=== PATIENT | female | born 1940 | race Caucasian/White ===

== ENCOUNTER 2016-07-01 11:35 | Emergency (ER) | payer MEDICARE ==
[2016-07-01] MEDS ORDERED: DIPHTH,PERTUSS(ACELL),TET VAC 0.5 ML VIAL IM V ONE (13:10)
--- NOTE | 2016-07-01 13:29 | RAD ---
Name: EDGARD WINTERS Exam: Right hand Comparison: None Clinical history: Pain Findings: 4 radiographs of the right hand are submitted. Bone density is within normal limits. There is advanced degenerative disease of the lateral carpus. Carpal alignment is normal. Degenerative changes are identified at the DIP joint of the index finger and to a lesser degree at the DIP joints of the third and fifth digits. There is no fracture, dislocation, periosteal reaction or foreign body. Impression: Scattered degenerative changes. There is no acute bony abnormality.
--- NOTE | 2016-07-01 13:45 | CT ---
Name: EDGARD WINTERS Exam: CT head without contrast Comparison: 08/20/2015 Clinical history: Trauma Technique: Helical CT was performed through the head. Angled axial reconstructions were obtained. Sagittal and coronal reconstructions were obtained as well. No contrast was given. An automated dose reduction technique was used to minimize patient radiation dose. Findings: There is no shift of the midline structures. Mild atrophy is present. There is no mass, mass effect or hemorrhage. Cisterns are uneffaced. Posterior fossa is unremarkable. Dense vascular calcifications are present. Visualized paranasal sinuses and mastoid air cells are clear. There is a small left frontal scalp hematoma without underlying fracture Impression: 1. Mild atrophy 2. Small left frontal scalp hematoma without underlying fracture 3. Dense atherosclerosis 4. No significant change to prior Note: The above report was uploaded to [facility]'s electronic medical records system at 1341 hours.
== END 2016-07-01 14:17 | disposition home or self-care (01) ==
LOC: ED 11:35
DX: S00.83XA Contusion of other part of head, initial encounter (principal); S00.31XA Abrasion of nose, initial encounter; S63.601A Unspecified sprain of right thumb, initial encounter; E78.5 Hyperlipidemia, unspecified; I10 Essential (primary) hypertension; W01.0XXA Fall on same level from slipping, tripping and stumbling without subsequent striking against object, initial encounter; Z79.899 Other long term (current) drug therapy; Z79.82 Long term (current) use of aspirin; Z88.8 Allergy status to other drugs, medicaments and biological substances; Z23 Encounter for immunization

== ENCOUNTER 2016-07-08 09:48 | Inpatient (IN) | payer MEDICARE ==
[2016-07-08] MEDS ORDERED: IOPAMIDOL 370 (76%) 100 ML VIAL IV ONE (09:49)
[2016-07-08] MEDS ORDERED: SODIUM CHLORIDE 0.9% 1,000 ML ONE (09:56)
[2016-07-08] MEDS ORDERED: ASPIRIN CHEWTAB 81 MG TABLET ONE (10:13)
[2016-07-08] MEDS ORDERED: ONDANSETRON 4 MG/2ML 2 ML VIAL ONE (10:13)
[2016-07-08 10:43] LABS: ABSOLUTE NEUTROPHIL COUNT 7.2 K/mm3 (1.8-7.7); BASO % 0.3 % (0.2-1.0); EOS # 0.2 (0.0-0.5); EOS % 1.6 % (0.9-2.9); HEMATOCRIT 46.7 % (37.0-47.0); HEMOGLOBIN 14.6 gm/l (12.0-16.0); IMM NEUT% 0.4 % (0-1); LYMPH # 1.6 (1.0-4.8); LYMPH % 16.7 % (15-45); MEAN CELL VOLUME 96.9 fl (81.0-99.0); MEAN CORPUSCULAR HEMOGLOBIN 30.3 pg (27.0-31.0); MEAN CORPUSCULAR HGB CONC 31.3 g/dl (33.0-37.0); MEAN PLATELET VOLUME 10.4 fl (7.4-10.4); MONO # 0.7 (0.0-0.8); MONO % 7.4 % (4-12); NEUT % 73.6 % (43-75); PLATELET COUNT 190 K/mm3 (130-400); RED CELL DISTRIBUTION WIDTH 13.1 % (11.5-14.5)
[2016-07-08 10:46] LABS: PH,URINE 6.5 (5.0-8.0); URINE BILIRUBIN NEGATIVE (NEGATIVE); URINE BLOOD NEGATIVE (NEGATIVE); URINE GLUCOSE (UA) NEGATIVE (NEGATIVE); URINE LEUKOCYTE ESTERASE NEGATIVE (NEGATIVE); URINE NITRITE NEGATIVE (NEGATIVE); URINE PROTEIN 2+ (NEGATIVE); URINE UROBILINOGEN NORMAL (0-1 mg/dl)
[2016-07-08 10:59] LABS: URINE APPEARANCE CLEAR; URINE COLOR YELLOW
[2016-07-08 11:02] LABS: INR 1.01; PROTHROMBIN TIME 10.6 SECONDS (9.3-11.4)
--- NOTE | 2016-07-08 11:16 | RAD ---
CHEST-AP BEDSIDE COMPARISON: None HISTORY: Shortness of breath and diarrhea for one day. Weakness. FINDINGS: Views: Frontal chest. Lungs: Normal. Heart and vessels: Mild cardiomegaly. Atherosclerosis aorta. Normal pulmonary arteries and veins. Trachea and bronchi: Normal Mediastinum and nura: Normal Costophrenic sulci: Normal Chest wall and bones: Normal Upper abdomen: Normal. IMPRESSION: No acute finding. Mild cardiomegaly and atherosclerosis of the thoracic aorta.
[2016-07-08 11:29] LABS: D-DIMER 11.05 mg/L FEU (0.20-0.50)
[2016-07-08 11:42] LABS: ALB/GLOB RATIO 1.2 (>1.0); ALBUMIN 4.2 gm/dL (3.5-5.7); CALCIUM 9.3 mg/dL (8.6-10.3)
--- NOTE | 2016-07-08 13:39 | CT ---
CTA CHEST FOR PE COMPARISON: Portable chest x-ray, 07/08/2016 HISTORY: Hypoxia and weakness. Technique: Intravenous injection 67 mL [id number]-370. Using a [employer] Aquilion [address] scanner, following a CT angiogram protocol, images obtained through the thorax. Under concurrent supervision and interpretation, requiring a separate 3-D workstation, the technologist created 3-D CT angiograms. An automated dose reduction technique was used to minimize patient radiation dose. Dose information: CTDIvol (mGy): 7.70, 117.50, 13.50 DLP(mGycm): 465.10 FINDINGS: Pulmonary arteries and veins: Excellent contrast opacification. Moderate volume of embolism at the branching of the right pulmonary, with embolism extending primarily into the right lower lobe pulmonary artery, but also into the right middle lobe and right upper lobe arteries. Minimal embolism burden in the arteries to the left lower lobe and left upper lobe. Aorta: Normal Heart and coronary arteries: Normal. Lungs: Mosaic perfusion Trachea and bronchi: Normal. Mediastinum and nura: Normal. Pleura and pericardium: Normal. Chest wall: Mild pectus excavatum. Spine: Thoracic spondylosis and hyperkyphosis. Upper abdomen:Normal. 3-D CT angiogram: Normal. IMPRESSION: 1. Critical result of bilateral pulmonary emboli with mosaic perfusion discussed with Cam Montanez M.D. 07/08/2016 at 13:35
--- NOTE | 2016-07-08 13:42 | CT ---
HEAD W/O CON COMPARISON: Head CT without contrast 07/01/2016 HISTORY: Patient hit her head and has dizziness. TECHNIQUE: Using a [employer] Aquilion [address] scanner, images were obtained through the head. An automated dose reduction technique was used to minimize patient radiation dose. DOSE INFORMATION: CTDIvol (mGy): 51.70 DLP(mGycm): 913.10 FINDINGS: Mass: None Intracranial Hemorrhage: None Acute Infarction: None Cerebral hemispheres: No change. Mild atrophy. Basal ganglia: Normal Thalami: Normal Brainstem: Normal Cerebellum: Normal Ventricles: Normal Basilar cisterns: Normal Corpus callosum: Normal Pituitary fossa: Normal Middle ears and mastoid air cells: Normal Orbits and sinuses: Normal Skull and scalp: Normal Dural sinuses and vessels: Normal IMPRESSION: No acute finding. Mild cerebral atrophy similar to the prior exam. The results were discussed with Cam Montanez M.D., 07/08/2016 at 13:35
[2016-07-08] MEDS ORDERED: Heparin Sodium 5000 unit/0.5ml syringe ONE (13:45)
[2016-07-08] MEDS ORDERED: HEPARIN SODIUM PREMIX 500 ML IV ONE (13:46)
[2016-07-08] MEDS ORDERED: SODIUM CHLORIDE 0.9% 100 ML IV PRN (14:51)
[2016-07-08] MEDS ORDERED: BISACODYL 10 MG SUP PR PRN (14:51)
[2016-07-08] MEDS ORDERED: BLISTEX LIPSTICK 1 EACH TP PRN (14:51)
[2016-07-08] MEDS ORDERED: BISACODYL 5 MG TABLET.EC PO PRN (14:51)
[2016-07-08] MEDS ORDERED: MAGNESIUM HYDROXIDE 30 ML UDCUP PO PRN (14:51)
[2016-07-08 14:59] VITALS: BMI 35.2
[2016-07-08] MEDS ORDERED: HEPARIN SODIUM PREMIX 500 ML IV SCH ×2 (15:00→21:20)
[2016-07-08] MEDS ORDERED: HEPARIN SODIUM IV ONE ×2 (15:00→15:15)
[2016-07-08] MEDS ORDERED: WARFARIN PER PHARMACY 1 EACH DOSE PO SCH (16:00)
[2016-07-08] MEDS ORDERED: WARFARIN SODIUM 5 MG TABLET PO SCH (16:00)
[2016-07-08] MEDS ORDERED: SODIUM CHLORIDE 0.9% 1,000 ML IV SCH (16:15)
[2016-07-08] MEDS ORDERED: PUMP TUBING ONE (16:17)
--- NOTE | 2016-07-08 21:11 | HP ---
EDGARD WINTERS [id number] DATE OF ADMISSION: 07/08/2016 CHIEF COMPLAINT: Syncope. HISTORY OF PRESENT ILLNESS: The patient is a 76-year-old female with a past medical history significant for chronic Stage-3 kidney disease due to atrophy of one of her kidneys of uncertain etiology. She also has a history of chronic essential hypertension and osteoporosis, as well as osteoarthritis. She was brought to the [facility] Emergency Department this morning by ambulance after she collapsed in her front yard and may have had brief loss of consciousness. She reports she had sudden onset of the syncope and the dizziness following and had some nausea, vomiting and diaphoresis associated with the spell. She remembers waking-up on the front lawn and feeling very weak and short of breath. She was unable to stand, but she was able to crawl into her house. She was covered with water because of the moisture outside and was very cold. She reports she does not know how long she was unconscious, but believes it was brief. She had one episode of emesis after the spell and was diaphoretic. She has had a cough for a couple of weeks, which has been nonproductive. She has noticed some dyspnea on exertion for several weeks, but this has been mild and not enough to prompt her to seek medical attention. She had a routine appointment with her doctor in the next week and had just been waiting. She denies any chest pain. She has had persistent shortness of breath since the episode occurred this morning. REVIEW OF SYSTEMS: Negative for any documented fever. She has had no recent upper respiratory symptoms. No chest pains or palpitations. No lower extremity edema or orthopnea. She had a single episode of emesis with the syncopal episode this morning, but denies any persistent nausea or vomiting. She has had no diarrhea or constipation and no abdominal pain. She denies any complaints of headaches or seizures. No prior history of any syncopal episodes. No urinary complaints. Her review of systems is otherwise negative. PAST MEDICAL HISTORY: Significant for: 1. A history of generalized osteoarthritis. 2. She has a history of a single kidney status and chronic Stage-3 kidney disease, with a baseline creatinine of around 1.3. She is followed by Dr. Valencia with [facility]. She reportedly has one functioning kidney discovered on ultrasound, with atrophy of her other kidney. It is unclear what caused this. 3. She has chronic essential hypertension. 4. Dyslipidemia. 5. She is under treatment for osteoporosis. 6. She has generalized osteoarthritis. 7. She has had no recent hospitalizations, except for a left knee replacement in May of 2015 over a year ago. PAST SURGICAL HISTORY: Significant for: 1. The left total knee arthroplasty performed on 05/25/2015. 2. She had a hysterectomy sometime in the , with oophorectomies. 3. She had a right foot neuroma surgery x 2. 4. Tonsillectomy as a child. ALLERGIES: 1. Lidocaine. 2. Bee stings. CURRENT MEDICATIONS: Include: 1. Enteric-coated aspirin 81 mg daily. 2. She carries an EpiPen to use as needed. 3. She takes a multivitamin once daily. 4. Vitamin D-3, 2,000 units daily. 5. Norvasc 5 mg daily. 6. Fosamax 70 mg once a week on Sundays. 7. Simvastatin 20 mg every evening. 8. She takes some medicine prescribed by Dr. Valencia twice a week, possibly captopril. This needs to be confirmed, and will document when able. FAMILY HISTORY: Significant for a sister and a mother with coronary artery disease. SOCIAL HISTORY: She is single and is retired. She has one grown daughter. She lives independently in [facility]. She is not interested in dialysis. CODE STATUS: She wishes her code status to be do not resuscitate. HABITS: She has never smoked. She denies history of alcohol or illicit drug use. PHYSICAL EXAMINATION: VITAL SIGNS: Her vital signs show a temperature of 98.3, pulse 90, blood pressure 152/75, respirations 16 and oxygen saturations of 95% on four liters. In the emergency department her oxygen saturations were down to 82% on room air. Her body mass index is 35.2 and weight is 87.2 kilograms. GENERAL: This is a slightly obese female currently in no acute distress. HEENT: Shows some bruising of the soft tissues around the mouth, particularly on the upper lip, which she reports happened after she tripped and fell a week ago, but not in the most recent injury. NECK: Her neck is nontender, with full range of motion. No adenopathy. LUNGS: Her lungs reveal some faint occasional expiratory wheezes, otherwise clear to auscultation bilaterally. CARDIOVASCULAR: Reveals a regular rate and rhythm, without a murmur. ABDOMEN: Obese, soft, nontender and nondistended, with positive bowel sounds. EXTREMITIES: Show varicose veins in both lower extremities, with trace lower extremity edema bilaterally. Homans sign is negative bilaterally. No palpable cords are present. There is no inflammation or redness seen. No skin breakdown. NEUROLOGIC: Exam is nonfocal. She is alert and oriented times three. LABORATORY STUDIES: CBC showed a white count of 9.8, hemoglobin of 14.6 and a platelet count of 190,000. Coagulation profile showed an INR of 1.01, PTT of 22.7, and D-dimer was elevated at 11. Lactate was normal at 1.6. Chemistry profile showed a sodium of 126, potassium 3.6, carbon dioxide 21, BUN of 20, creatinine 1.4 and glucose 169 in a nonfasting sample. Troponin-I was 0.04. Total CPK was 73. Lipase 27 and albumin 4.2. Urinalysis showed a specific gravity of 1.020 and 2+ protein. Nitrite and leukocyte esterase are negative. A 12-lead EKG showed sinus rhythm. Possible old inferior infarct, with Q-wave seen in lead 3 and AVF, but no Q-wave in lead-2. IMAGIN. CT of the chest and abdomen with contrast shows multiple bilateral pulmonary emboli involving multiple lobes. 2. CT of the brain showed no acute findings. 3. Chest x-ray was unremarkable. ASSESSMENT/PLAN: 1. The patient has syncope associated with acute extensive pulmonary embolism, with acute hypoxic respiratory failure. 2. She had some hypothermia in the emergency department associated with exposure and her body temperature was down to 98.2 degrees. 3. She has chronic Stage-3 kidney disease, with a baseline creatinine of 1.3 to 1.4. 4. She has now had contrast exposure with the CT angiogram and is at risk for acute kidney injury. 5. She has some mild hyponatremia, suspect due to the pulmonary embolism. She will be hydrated with saline overnight and will recheck creatinine and sodium in the morning. 6. She has chronic essential hypertension and dyslipidemia, stable on medications. Plan on continuing her Norvasc and her simvastatin during her hospital stay. 7. She also has osteoporosis, on Fosamax. Will likely continue this in the morning as well. 8. She has been admitted to the Intermediate Care Unit. Will treat with a heparin drip and start her on Coumadin therapy. May transition from heparin to low-molecular weight heparin in the next 48 hours depending on how she is doing, but anticipate she will stay in the hospital for three to four days until her INR is therapeutic. She would prefer to have her Coumadin monitoring and management done at [facility], so we will make arrangements to be done through the [facility]. 9. Further treatment and recommendations will depend on her hospital course. cc: Lissy Bardales, Family Nurse Practitioner with [facility].
[2016-07-08] MEDS: ACETAMINOPHEN 325 MG TABLET PO PRN (21:23)
[2016-07-08] MEDS: SIMVASTATIN 20 MG TABLET PO SCH (21:24)
[2016-07-08] MEDS: DOCUSATE SODIUM 100 MG CAPSULE PO SCH (21:34)
[2016-07-09] MEDS: HEPARIN SODIUM PREMIX 500 ML IV SCH ×2 (03:17→09:25)
[2016-07-09 05:40] LABS: ABSOLUTE NEUTROPHIL COUNT 4.4 K/mm3 (1.8-7.7); BASO # 0.1 K/mm3 (0.0-0.2); BASO % 0.6 % (0.2-1.0); EOS # 0.3 (0.0-0.5); EOS % 2.9 % (0.9-2.9); HEMATOCRIT 39.1 % (37.0-47.0); HEMOGLOBIN 12.5 gm/l (12.0-16.0); IMM NEUT% 0.2 % (0-1); LYMPH # 3.6 (1.0-4.8); LYMPH % 38.5 % (15-45); MEAN CELL VOLUME 95.6 fl (81.0-99.0); MEAN CORPUSCULAR HEMOGLOBIN 30.6 pg (27.0-31.0); MONO # 1.1 (0.0-0.8); MONO % 11.2 % (4-12); NEUT % 46.6 % (43-75); PLATELET COUNT 181 K/mm3 (130-400)
[2016-07-09 06:11] LABS: INR 1.04; PROTHROMBIN TIME 10.9 SECONDS (9.3-11.4)
[2016-07-09 06:20] LABS: CALCIUM 8.1 mg/dL (8.6-10.3)
[2016-07-09] MEDS ORDERED: ALENDRONATE SODIUM 70 MG TABLET PO SCH (07:30)
[2016-07-09] MEDS: DOCUSATE SODIUM 100 MG CAPSULE PO SCH ×2 (10:13→21:25)
[2016-07-09] MEDS: ASPIRIN (ENTERIC COATED) 81 MG TABLET.EC PO SCH (10:17)
[2016-07-09] MEDS: VITAMIN D3 1,000 UNITS CAP.LIQ PO SCH (10:18)
[2016-07-09] MEDS: AMLODIPINE BESYLATE 5 MG TABLET PO SCH (10:18)
--- NOTE | 2016-07-09 10:42 | PDOC43 ---
- Subjective Chief Complaint: Syncope/dyspnea Subjective: Reports Shortness of Breath (improving), Reports Cough ( nonproductive), Denies Chest Pain, Denies Fever - Objective Vital Signs Temperature 98.8 F 07/09/16 08:00 Pulse Rate 67 07/09/16 08:00 Respiratory Rate 22 07/09/16 08:00 Blood Pressure 124/64 07/09/16 08:00 O2 Saturation by Pulse Oximetry 96 07/09/16 08:00 Oxygen Delivery Method Nasal Cannula Oxygen Flow Rate 3 Intake and Output 07/08/16 07/09/16 07/10/16 06:59 06:59 06:59 Intake Total 3892 Output Total 1250 Balance 2642 General: Alert, Oriented x3, Cooperative, No Acute Distress HEENT: Mucous membr. moist/pink Lungs: Clear to Auscultation Bilaterally Cardiovascular: Regular Rate and Rhythm Abdomen: Soft, Normal Bowel Sounds, Non-Distended, No Tenderness Extremities: No Edema Skin: Warm, Dry, Intact Laboratory 07/09/16 05:30 07/09/16 05:30 07/09/16 07/09/16 07/09/16 09:20 05:30 02:00 RBC 4.09 L MCHC 32.0 L PTT 95.7 H 59.7 H Estimated GFR 44 L Calcium 8.1 L 07/08/16 20:05 RBC MCHC PTT 53.4 H Estimated GFR Calcium Current Medications: Current meds reviewed in EMR. - Problems: Assessment/Plan (1) Pulmonary embolism Qualifiers: Chronicity: acute Acute cor pulmonale presence: without acute cor pulmonale Status: AcuteAssessment/Plan: extensive pulmonary emboli with acute hypoxic resp failure improving on heparin drip and oxygen weaning from 4L to 2L via NC, coumadin started-[facility], advance activity, remove nettles (2) CKD (chronic kidney disease) stage 3, GFR 30-59 ml/min Status: ChronicAssessment/Plan: Cr stable despite IV contrast (3) Hyponatremia Status: AcuteAssessment/Plan: improved with saline (4) HTN (hypertension), benign Status: ChronicAssessment/Plan: stable on norvasc (5) Obesity, Class II, BMI 35-39.9 Status: ChronicAssessment/Plan: complicates care VTE Prophylaxis: heparin drip Disposition: transition to med/surg
[2016-07-09] MEDS: MENTHOL/CETYLPYRD 1 EACH LOZENGE PO PRN ×2 (10:45→16:11)
[2016-07-09] MEDS ORDERED: WARFARIN SODIUM 5 MG TABLET PO ONE (16:00)
[2016-07-09] MEDS ORDERED: HEPARIN SODIUM PREMIX 500 ML IV SCH (16:29)
[2016-07-09] MEDS: SIMVASTATIN 20 MG TABLET PO SCH (21:25)
[2016-07-10] MEDS ORDERED: HEPARIN SODIUM PREMIX 500 ML IV SCH ×2 (03:45→05:00)
[2016-07-10 03:54] LABS: HEMATOCRIT 40.7 % (37.0-47.0); HEMOGLOBIN 12.7 gm/l (12.0-16.0); MEAN CELL VOLUME 95.1 fl (81.0-99.0); MEAN CORPUSCULAR HEMOGLOBIN 29.7 pg (27.0-31.0); MEAN CORPUSCULAR HGB CONC 31.2 g/dl (33.0-37.0); RED CELL DISTRIBUTION WIDTH 12.8 % (11.5-14.5)
[2016-07-10 04:30] LABS: INR 1.18; PARTIAL THROMBOPLASTIN TIME 104.2 SECONDS (24.5-33.0); PROTHROMBIN TIME 12.5 SECONDS (9.3-11.4)
[2016-07-10] MEDS: VITAMIN D3 1,000 UNITS CAP.LIQ PO SCH (08:24)
[2016-07-10] MEDS: AMLODIPINE BESYLATE 5 MG TABLET PO SCH (08:24)
[2016-07-10] MEDS: ASPIRIN (ENTERIC COATED) 81 MG TABLET.EC PO SCH (08:24)
[2016-07-10] MEDS: DOCUSATE SODIUM 100 MG CAPSULE PO SCH ×2 (08:24→21:18)
[2016-07-10] MEDS: ENOXAPARIN SODIUM 100 MG/ML SYRINGE SUB-Q SCH ×2 (10:24→21:17)
[2016-07-10] MEDS: ALBUTEROL NEB 2.5 MG/3 ML VIAL.NEB NEB PRN ×2 (11:02→19:41)
--- NOTE | 2016-07-10 14:31 | PDOC43 ---
- Subjective Chief Complaint: Syncope/dyspnea Subjective: Reports Tolerating Diet Well, Reports Shortness of Breath (improving ), Denies Chest Pain, Denies Fever - Objective Vital Signs Temperature 97.8 F 07/10/16 11:09 Pulse Rate 70 07/10/16 11:09 Respiratory Rate 22 07/10/16 11:09 Blood Pressure 148/71 07/10/16 11:09 O2 Saturation by Pulse Oximetry 93 07/10/16 11:09 Oxygen Delivery Method Room Air Oxygen Flow Rate 0 Intake and Output 07/09/16 07/10/16 07/11/16 06:59 06:59 06:59 Intake Total 3892 2014.1 120 Output Total 1250 1850 550 Balance 2642 164.1 -430 General: Alert, Oriented x3, Cooperative, No Acute Distress HEENT: Mucous membr. moist/pink Lungs: Other (scattered wheezes) Cardiovascular: Regular Rate and Rhythm Abdomen: Soft, Normal Bowel Sounds, Non-Distended, No Tenderness Extremities: No Edema Skin: Warm, Dry, Intact Laboratory 07/10/16 03:45 07/09/16 05:30 07/10/16 07/09/16 07/09/16 03:45 22:33 15:25 MCHC 31.2 L PT 12.5 H PTT 104.2 H 122.7 H 105.7 H Current Medications: Current meds reviewed in EMR. - Problems: Assessment/Plan (1) Pulmonary embolism Qualifiers: Chronicity: acute Acute cor pulmonale presence: without acute cor pulmonale Status: AcuteAssessment/Plan: extensive pulmonary emboli with acute hypoxic resp failure improving on heparin drip and oxygen weaning from 4L to 2L via NC, coumadin started-[facility], advance activity, anticipate transition from heparin drip to Lovenox today with possible outpatient therapy in next 1-2 days (2) CKD (chronic kidney disease) stage 3, GFR 30-59 ml/min Status: ChronicAssessment/Plan: Cr stable despite IV contrast (3) Hyponatremia Status: AcuteAssessment/Plan: improved with saline (4) HTN (hypertension), benign Status: ChronicAssessment/Plan: stable on norvasc (5) Obesity, Class II, BMI 35-39.9 Status: ChronicAssessment/Plan: complicates care VTE Prophylaxis: Lovenox Disposition: Anticipate discharge in am if stable
[2016-07-10] MEDS ORDERED: WARFARIN SODIUM 5 MG TABLET PO SCH (16:00)
[2016-07-10] MEDS ORDERED: WARFARIN SODIUM 7.5 MG TABLET PO SCH (16:00)
[2016-07-10] MEDS: ACETAMINOPHEN 325 MG TABLET PO PRN ×2 (16:12→23:09)
[2016-07-10] MEDS: SIMVASTATIN 20 MG TABLET PO SCH (21:18)
[2016-07-10] MEDS: MENTHOL/CETYLPYRD 1 EACH LOZENGE PO PRN (21:18)
[2016-07-10] MEDS ORDERED: ONDANSETRON 4 MG/2ML 2 ML VIAL ONE (23:06)
[2016-07-10] MEDS: ONDANSETRON 4 MG/2ML 2 ML VIAL IV PRN (23:09)
[2016-07-11] MEDS: ASPIRIN (ENTERIC COATED) 81 MG TABLET.EC PO SCH (10:02)
[2016-07-11] MEDS: ENOXAPARIN SODIUM 100 MG/ML SYRINGE SUB-Q SCH ×2 (10:02→21:23)
[2016-07-11] MEDS: VITAMIN D3 1,000 UNITS CAP.LIQ PO SCH (10:02)
[2016-07-11] MEDS: AMLODIPINE BESYLATE 5 MG TABLET PO SCH (10:02)
[2016-07-11] MEDS: DOCUSATE SODIUM 100 MG CAPSULE PO SCH ×2 (10:02→21:23)
--- NOTE | 2016-07-11 10:44 | RAD ---
History: Chest pain with hypoxia. Comparison: 07/08/2016. Technique: 2 views Findings: Multilevel thoracic degenerative changes are identified. The heart size is borderline prominent. Mild central vascular congestion is also observed with an appearance similar to that seen on prior exam. No gross consolidation, effusion or pneumothorax is seen. The hilar and mediastinal structures are intact. Impression: 1. Borderline cardiac size with mild central vascular prominence, similar to that seen on prior examination.
[2016-07-11] MEDS: ALBUTEROL NEB 2.5 MG/3 ML VIAL.NEB NEB PRN ×2 (10:52→16:04)
[2016-07-11] MEDS ORDERED: FUROSEMIDE 20 MG/2 ML VIAL IV ONE (12:04)
--- NOTE | 2016-07-11 13:04 | PDOC43 ---
- Subjective Chief Complaint: Syncope/dyspnea Subjective: Reports Adequate Oral Intake, Reports Shortness of Breath (a little worse today), Reports Cough (nonproductive), Reports Nausea (last night), Reports Vomiting (some vomiting last night), Denies Fever - Objective Vital Signs Temperature 97.2 F 07/11/16 12:00 Pulse Rate 74 07/11/16 12:00 Respiratory Rate 20 07/11/16 12:00 Blood Pressure 144/74 07/11/16 12:00 O2 Saturation by Pulse Oximetry 95 07/11/16 12:00 Oxygen Delivery Method Room Air Oxygen Flow Rate 0 Intake and Output 07/10/16 07/11/16 07/12/16 06:59 06:59 06:59 Intake Total 2014.1 2106 Output Total 1850 1875 Balance 164.1 231 General: Alert, Oriented x3, Cooperative, Mild Distress HEENT: Mucous membr. moist/pink Lungs: Other (some scattered wheezes, poor air movement) Cardiovascular: Regular Rate and Rhythm Abdomen: Soft, Normal Bowel Sounds, No Tenderness Extremities: Edema (trace) Laboratory 07/10/16 03:45 07/09/16 05:30 Current Medications: Current meds reviewed in EMR. - Problems: Assessment/Plan (1) Pulmonary embolism Qualifiers: Chronicity: acute Acute cor pulmonale presence: without acute cor pulmonale Status: AcuteAssessment/Plan: extensive pulmonary emboli with acute hypoxic resp failure improving on heparin drip and oxygen weaning from 4L to 2L via NC, coumadin started-[facility], advance activity, initially on heparin drip transitioned to Lovenox on 07/10 with possible outpatient therapy in next 1-2 days (2) CKD (chronic kidney disease) stage 3, GFR 30-59 ml/min Status: ChronicAssessment/Plan: Cr stable despite IV contrast (3) Hyponatremia Status: AcuteAssessment/Plan: improved with saline (4) HTN (hypertension), benign Status: ChronicAssessment/Plan: stable on norvasc (5) Obesity, Class II, BMI 35-39.9 Status: ChronicAssessment/Plan: complicates care (6) Cor pulmonale, acute Status: AcuteAssessment/Plan: suspected based on CXR-Lasix today VTE Prophylaxis: Lovenox Disposition: Anticipate discharge in am if stable
[2016-07-11] MEDS ORDERED: WARFARIN SODIUM 5 MG TABLET PO SCH (16:00)
[2016-07-11] MEDS: ACETAMINOPHEN 325 MG TABLET PO PRN ×2 (16:34→21:23)
[2016-07-11] MEDS: SIMVASTATIN 20 MG TABLET PO SCH (21:23)
[2016-07-11] MEDS: ONDANSETRON 4 MG/2ML 2 ML VIAL IV PRN (21:24)
[2016-07-12 06:48] LABS: ABSOLUTE NEUTROPHIL COUNT 2.8 K/mm3 (1.8-7.7); BASO # 0.1 K/mm3 (0.0-0.2); BASO % 0.8 % (0.2-1.0); EOS # 0.4 (0.0-0.5); EOS % 5.7 % (0.9-2.9); HEMATOCRIT 41.1 % (37.0-47.0); HEMOGLOBIN 13.1 gm/l (12.0-16.0); IMM NEUT% 0.2 % (0-1); LYMPH # 2.2 (1.0-4.8); LYMPH % 35.2 % (15-45); MEAN CORPUSCULAR HEMOGLOBIN 30.6 pg (27.0-31.0); MEAN CORPUSCULAR HGB CONC 31.9 g/dl (33.0-37.0); MONO # 0.8 (0.0-0.8); MONO % 12.6 % (4-12); NEUT % 45.5 % (43-75); PLATELET COUNT 213 K/mm3 (130-400); RED CELL DISTRIBUTION WIDTH 13.2 % (11.5-14.5)
[2016-07-12 07:05] LABS: INR 3.23; PROTHROMBIN TIME 36.1 SECONDS (9.3-11.4)
[2016-07-12 07:13] LABS: CALCIUM 8.4 mg/dL (8.6-10.3)
[2016-07-12] MEDS: ENOXAPARIN SODIUM 100 MG/ML SYRINGE SUB-Q SCH ×2 (09:08→20:02)
[2016-07-12] MEDS: VITAMIN D3 1,000 UNITS CAP.LIQ PO SCH (09:08)
[2016-07-12] MEDS: AMLODIPINE BESYLATE 5 MG TABLET PO SCH (09:09)
[2016-07-12] MEDS: DOCUSATE SODIUM 100 MG CAPSULE PO SCH ×2 (09:09→22:43)
[2016-07-12] MEDS: ASPIRIN (ENTERIC COATED) 81 MG TABLET.EC PO SCH (09:09)
[2016-07-12] MEDS: ALBUTEROL NEB 2.5 MG/3 ML VIAL.NEB NEB PRN ×2 (15:10→23:54)
[2016-07-12] MEDS ORDERED: ALBUTEROL/IPRATROPIUM 2.5/0.5 MG 3 ML/EACH DOSE NEB PRN (15:12)
--- NOTE | 2016-07-12 15:18 | PDOC43 ---
- Subjective Chief Complaint: Syncope/dyspnea Patient improving, still lot of pain on breathing. Rib pain with cough. She is wheezing that is troubling her. Denies chest pain or abdominal pain. Subjective: Reports Pain Tolerable, Reports Tolerating Diet Well, Reports Adequate Oral Intake, Reports Cough, Denies Shortness of Breath, Denies Chest Pain, Denies Abdominal Pain, Denies Nausea, Denies Vomiting - Objective Vital Signs Temperature 98.2 F 07/12/16 14:32 Pulse Rate 75 07/12/16 14:32 Respiratory Rate 16 07/12/16 14:32 Blood Pressure 165/80 07/12/16 14:32 O2 Saturation by Pulse Oximetry 93 07/12/16 14:32 Oxygen Delivery Method Room Air Oxygen Flow Rate 0 Intake and Output 07/10/16 07/11/16 07/12/16 23:59 23:59 23:59 Intake Total 2431 2650 760 Output Total 2200 2825 1650 Balance 231 -175 -890 General: Alert, Oriented x3, Cooperative, Other (obese), No Acute Distress HEENT: Atraumatic, PERRLA, EOMI, Mucous membr. moist/pink Lungs: Normal Air Movement, Other (B/L expiratory wheeze) Cardiovascular: Regular Rate and Rhythm, Normal S1, Normal S2 Abdomen: Soft, Mild Distention, No Rigid, No Tenderness, No Rebounding Extremities: No Cyanosis, No Edema, No Tenderness Neurological: Normal Speech Psych/Mental Status: Normal Mood Laboratory 07/12/16 06:30 07/12/16 06:30 07/12/16 06:30 MCHC 31.9 L PT 36.1 H Estimated GFR 44 L Calcium 8.4 L Current Medications: Current meds reviewed in EMR. - Problems: Assessment/Plan (1) Pulmonary embolism Qualifiers: Pulmonary embolism type: other Chronicity: acute Acute cor pulmonale presence: without acute cor pulmonale Qualifier Code: (I26.99) Other pulmonary embolism without acute cor pulmonale Status: AcuteAssessment /Plan: extensive pulmonary emboli with acute hypoxic resp failure improving on heparin drip and oxygen weaning from 4L to 2L via NC, coumadin started-[facility], advance activity, initially on heparin drip transitioned to Lovenox on 07/10 with possible outpatient therapy in next 1-2 days INR therapuetic today, will continue lovenox bridge. Patient feeling up to discharge as she is tolerating room air and maintaining O2 sats in low 90's. Her concern is the wheezing and pain with inspiration. Will trial nebulizer treatment and continue to monitor No evidence of cor pulmonale on CT exam, EKG. (2) CKD (chronic kidney disease) stage 3, GFR 30-59 ml/min Status: ChronicAssessment/Plan: Cr stable despite IV contrast (3) HTN (hypertension), benign Status: ChronicAssessment/Plan: stable on norvasc (4) Obesity, Class II, BMI 35-39.9 Status: ChronicAssessment/Plan: complicates care VTE Prophylaxis: Lovenox Disposition: Anticipate discharge in am if stable
[2016-07-12] MEDS: SIMVASTATIN 20 MG TABLET PO SCH (20:03)
[2016-07-12] MEDS: ACETAMINOPHEN 325 MG TABLET PO PRN (20:03)
[2016-07-13 06:03] LABS: HEMATOCRIT 40.6 % (37.0-47.0); HEMOGLOBIN 12.7 gm/l (12.0-16.0); MEAN CELL VOLUME 97.8 fl (81.0-99.0); MEAN CORPUSCULAR HEMOGLOBIN 30.6 pg (27.0-31.0); MEAN CORPUSCULAR HGB CONC 31.3 g/dl (33.0-37.0); RED CELL DISTRIBUTION WIDTH 13.3 % (11.5-14.5)
[2016-07-13 06:20] LABS: INR 3.25; PROTHROMBIN TIME 36.3 SECONDS (9.3-11.4)
[2016-07-13 06:27] LABS: CALCIUM 8.6 mg/dL (8.6-10.3)
[2016-07-13] MEDS: ONDANSETRON 4 MG/2ML 2 ML VIAL IV PRN (07:41)
--- NOTE | 2016-07-13 08:50 | RAD ---
CHEST 2 VIEWS HISTORY: Shortness of breath and wheezing Frontal and lateral chest radiographs dated 07/13/2016. COMPARISON: None. FINDINGS: FOCAL AIRSPACE OPACITY: No gross airspace consolidation. BRONCHOVASCULAR MARKINGS: Mildly coarsened. Peribronchial cuffing is seen on lateral and frontal views. PLEURAL EFFUSION: None. CARDIOMEDIASTINAL SILHOUETTE: Nonenlarged. Aortic arch calcification. PNEUMOTHORAX: None identified. OSSEOUS STRUCTURES: No grossly destructive lesions. Thoracic kyphosis and disc degeneration. IMPRESSION: 1. No gross airspace consolidation. Coarsened bronchovascular markings, which can be seen in the setting of bronchitis, atypical/viral infection, or central airways disease. 2. Evidence of aortic atherosclerotic disease and thoracic disc degeneration.
[2016-07-13] MEDS: ALBUTEROL/IPRATROPIUM 2.5/0.5 MG 3 ML/EACH DOSE NEB SCH ×4 (09:38→20:02)
[2016-07-13] MEDS: ENOXAPARIN SODIUM 100 MG/ML SYRINGE SUB-Q SCH ×3 (09:42→21:06)
[2016-07-13] MEDS: ASPIRIN (ENTERIC COATED) 81 MG TABLET.EC PO SCH (09:43)
[2016-07-13] MEDS: DOCUSATE SODIUM 100 MG CAPSULE PO SCH ×4 (09:43→21:05)
[2016-07-13] MEDS: VITAMIN D3 1,000 UNITS CAP.LIQ PO SCH (09:43)
[2016-07-13] MEDS: AMLODIPINE BESYLATE 5 MG TABLET PO SCH (09:43)
--- NOTE | 2016-07-13 10:57 | PDOC43 ---
- Subjective Chief Complaint: Syncope/dyspnea due to PE Patient reports ongoing cough, wheeze, somewhat helped by neb tx. Noted some feeling of warmth, nausea, which resolved with nausea med. Notes some itching rash on the top of both shoulders bilat. Walking some, did ok, but notes ongoing wheeze. - Objective Vital Signs Temperature 98.8 F 07/13/16 07:51 Pulse Rate 93 07/13/16 09:38 Respiratory Rate 18 07/13/16 09:38 Blood Pressure 136/71 07/13/16 07:51 O2 Saturation by Pulse Oximetry 93 07/13/16 09:49 Oxygen Delivery Method Room Air Oxygen Flow Rate 0 Intake and Output 07/11/16 07/12/16 07/13/16 23:59 23:59 23:59 Intake Total 2650 1910 800 Output Total 2825 2600 800 Balance -175 -690 0 General: Alert, Cooperative, No Acute Distress HEENT: Atraumatic Lungs: Other (wheezing bilat, diffuse. Prolonged exp phase.) Cardiovascular: Regular Rate and Rhythm Abdomen: Soft, Normal Bowel Sounds, Non-Distended Extremities: No Edema Skin: Normal Color, Other (area on top of shoulders bilat with sl red, sl papular dermatitis sugg of contact dermatitis, about 2 cm diam, symmetric.) Neurological: Normal Speech Psych/Mental Status: Normal Affect, Normal Mood Laboratory 07/13/16 05:30 07/13/16 05:30 07/13/16 05:30 RBC 4.15 L MCHC 31.3 L PT 36.3 H Estimated GFR 44 L Laboratory Tests 07/13/16 05:30 B-Natriuretic Peptide 29 Current Medications: Current meds reviewed in EMR. Active Medications Acetaminophen (Tylenol) 650 mg PO Q6H PRN PRN Reason: Pain or Temperature > 100.5 F Last Admin: 07/12/16 20:03 Dose: 325 mg Albuterol Sulfate (Ventolin Inhalation Solution (Dose)) 2.5 mg NEB Q4H PRN PRN Reason: Wheezing Last Admin: 07/12/16 23:54 Dose: 2.5 mg Albuterol/Ipratropium (Duoneb) 3 ml NEB 08,12,16,20 [facility] Last Admin: 07/13/16 09:38 Dose: 3 ml Alendronate Sodium (Fosamax) 70 mg PO MELISSA [facility] Last Admin: 07/09/16 08:03 Dose: 70 mg Amlodipine Besylate (Norvasc) 5 mg PO QAM [facility] Last Admin: 07/13/16 09:43 Dose: 5 mg Aspirin (Ecotrin) 81 mg PO DAILY [facility] Last Admin: 07/13/16 09:43 Dose: 81 mg Benzocaine/Menthol (Cepacol) 1 each PO PRN PRN PRN Reason: Sore Throat Last Admin: 07/10/16 21:18 Dose: 1 each Bisacodyl (Dulcolax) 10 mg [place] DAILY PRN PRN Reason: Constipation Bisacodyl (Dulcolax) 5 mg PO DAILY PRN PRN Reason: Constipation Cholecalciferol (Vitamin D3) 2,000 units PO QAM [facility] Last Admin: 07/13/16 09:43 Dose: 2,000 units Docusate Sodium (Colace) 100 mg PO BID [facility] Last Admin: 07/13/16 09:52 Dose: 100 mg Enoxaparin Sodium (Lovenox) 90 mg SUB-Q Q12HR [facility] Last Admin: 07/13/16 09:42 Dose: 90 mg Sodium Chloride (Sodium Chloride 0.9%) 100 mls @ 25 mls/hr IV PRN PRN PRN Reason: Flush Magnesium Hydroxide (Milk Of Magnesia) 30 ml PO DAILY PRN PRN Reason: Constipation Miscellaneous (Coumadin Per Pharmacy) 1 each PO PERPHARMACY [facility] Ondansetron HCl (Zofran) 4 mg IV Q4H PRN PRN Reason: Nausea/Vomiting Last Admin: 07/13/16 07:41 Dose: 4 mg Petrolatum/Paraffin/Mineral Oil (Blistex) 1 each TP PRN PRN PRN Reason: Dry and/or chapped lips Simvastatin (Zocor) 20 mg PO QPM [facility] Last Admin: 07/12/16 20:03 Dose: 20 mg Sodium Chloride (Normal Saline 10ml Flush) 10 - 50 ml IV PRN PRN PRN Reason: IV Flush Last Admin: 07/13/16 07:42 Dose: 10 ml Sodium Chloride (Normal Saline 10ml Flush) 10 ml IV Q8HR [facility] Last Admin: 07/13/16 10:25 Dose: 10 ml - Problems: Assessment/Plan (1) Pulmonary embolism Qualifiers: Pulmonary embolism type: other Chronicity: acute Acute cor pulmonale presence: without acute cor pulmonale Qualifier Code: (I26.99) Other pulmonary embolism without acute cor pulmonale Status: AcuteAssessment /Plan: Extensive pulmonary emboli with acute hypoxic respiratory failure improving with anticoagulation, now on RA. coumadin started-computer game designer, advance activity, initially on heparin drip transitioned to Lovenox on 07/10 with possible outpatient therapy in next 1-2 days INR therapeutic today, will continue lovenox bridge. Will trial nebulizer treatment and continue to monitor With wheezing, BNP checked, not elevated. No evidence of cor pulmonale on CT exam, EKG. (2) Cor pulmonale, acute Status: Ruled-outAssessment/Plan: initially suspected based on CXR, but now felt to not be the case. Anticipate checking Echo today. (3) Hyponatremia Status: ResolvedAssessment/Plan: improved with saline (4) CKD (chronic kidney disease) stage 3, GFR 30-59 ml/min Status: ChronicAssessment/Plan: Cr stable/improved. (5) HTN (hypertension), benign Status: ChronicAssessment/Plan: stable on norvasc (6) Obesity, Class II, BMI 35-39.9 Status: ChronicAssessment/Plan: complicates care VTE Prophylaxis: Lovenox, coumadin Disposition: Anticipate discharge in am if stable
[2016-07-13] MEDS: HYDROCORTISONE 1% CREAM 20 APPLIC/30 G TUBE TP SCH ×2 (11:51→21:05)
--- NOTE | 2016-07-13 12:09 | CT ---
Exam Type: CHEST W/O CON Date and Time: 07/13/2016 10:50 AM History: Persistent cough and wheezing. History of pulmonary embolism. Comparison: Chest x-ray 07/13/2016 and CTA chest 07/08/2016. Technique: Contiguous axial 3 mm images of the chest were obtained without IV contrast. Sagittal and coronal reformations with high resolution lung algorithm images were also obtained at this time. CT DI: 8.3 DLP: 298.7 FINDINGS: LUNG AND LARGE AIRWAYS: There has been resolution of the mosaic attenuation scattered throughout the lungs. Lungs are otherwise clear. Mild patient motion artifact is noted. PLEURA: within normal limits. VESSELS: within normal limits HEART: normal size. No pericardial effusion. MEDIASTINUM AND BREE: within normal limits. CHEST WALL AND LOWER NECK: within normal limits. UPPER ABDOMEN: Fatty atrophy of the pancreas is present. Otherwise remainder of the abdomen is unremarkable BONES: Pectus excavatum deformity is likely present. IMPRESSION: Resolution of the mosaic attenuation as seen on prior study. Lungs are clear. No specific cause for the patient's persistent cough and wheezing. This study is not adequate for the assessment of pulmonary emboli given the lack of contrast. If there is further clinical concern for emboli, CTA would be recommended. Other findings as above.
[2016-07-14] MEDS ORDERED: GUAIFENESIN/CODEINE 100/10 MG (5 ML UDCUP) ONE (00:40)
[2016-07-14] MEDS: GUAIFENESIN/CODEINE 100/10 MG (5 ML UDCUP) PO PRN ×4 (00:43→17:39)
[2016-07-14] MEDS: ALBUTEROL NEB 2.5 MG/3 ML VIAL.NEB NEB PRN ×2 (01:02→06:21)
[2016-07-14 06:22] LABS: BASO # 0.1 K/mm3 (0.0-0.2); BASO % 0.7 % (0.2-1.0); EOS # 0.3 (0.0-0.5); HEMATOCRIT 37.2 % (37.0-47.0); IMM NEUT% 0.2 % (0-1); LYMPH # 3.1 (1.0-4.8); LYMPH % 37.3 % (15-45); MEAN CELL VOLUME 95.6 fl (81.0-99.0); MEAN CORPUSCULAR HEMOGLOBIN 30.8 pg (27.0-31.0); MEAN CORPUSCULAR HGB CONC 32.3 g/dl (33.0-37.0); MEAN PLATELET VOLUME 9.7 fl (7.4-10.4); MONO # 0.8 (0.0-0.8); NEUT % 48.8 % (43-75); PLATELET COUNT 233 K/mm3 (130-400); RED CELL DISTRIBUTION WIDTH 13.5 % (11.5-14.5)
[2016-07-14 06:38] LABS: INR 2.71
[2016-07-14 06:42] LABS: ALB/GLOB RATIO 1.2 (>1.0); ALBUMIN 3.4 gm/dL (3.5-5.7); CALCIUM 8.5 mg/dL (8.6-10.3)
[2016-07-14] MEDS ORDERED: SODIUM CHLORIDE 0.9% FLUSH 10 ML ONE (06:54)
[2016-07-14] MEDS ORDERED: IV START KIT ONE (06:55)
[2016-07-14] MEDS: ONDANSETRON 4 MG/2ML 2 ML VIAL IV PRN (06:58)
[2016-07-14] MEDS: ACETAMINOPHEN 325 MG TABLET PO PRN (06:58)
--- NOTE | 2016-07-14 07:56 | PDOC43 ---
- Subjective Chief Complaint: Syncope/dyspnea due to PE Patient reported to be doing better, but cough seems to be worsening. Pt reports activity tolerance doing ok, but cough quite bothersome. She related how her sister has had some similar hx including a pulmonary embolus, and a severe persistent cough for years now. - Objective Vital Signs Temperature 98.5 F 07/14/16 07:38 Pulse Rate 81 07/14/16 07:38 Respiratory Rate 20 07/14/16 07:38 Blood Pressure 137/77 07/14/16 07:38 O2 Saturation by Pulse Oximetry 93 07/14/16 07:38 Oxygen Delivery Method Nasal Cannula Oxygen Flow Rate 2 Vital Signs Last 12 Hours Temp Pulse Resp BP Pulse Ox 07/14/16 07:38 98.5 F 81 20 137/77 93 07/14/16 07:30 93 07/14/16 07:26 78 88 07/14/16 06:40 77 20 91 07/14/16 06:25 91 07/14/16 01:32 99.5 F 82 20 150/77 92 07/14/16 01:00 16 07/13/16 20:03 81 16 93 07/13/16 19:59 18 Intake and Output 07/12/16 07/13/16 07/14/16 23:59 23:59 23:59 Intake Total 1910 1650 930 Output Total 2600 1750 850 Balance -690 -100 80 General: Alert, Cooperative, Mild Distress (from cough) Lungs: Other (upper airway wheezes bilat, more noticeable at upper sternum, but rad to lung pinedo bilat.) Cardiovascular: Regular Rate and Rhythm Abdomen: Soft, Normal Bowel Sounds, Non-Distended Extremities: Other (SCDs on), No Edema Neurological: Other (voice intact, speech clear.) Psych/Mental Status: Anxious, Other (appears quite uncomfortable from cough.) Laboratory 07/14/16 05:30 07/14/16 05:30 07/14/16 05:30 RBC 3.89 L MCHC 32.3 L PT 30.0 H Estimated GFR 49 L Calcium 8.5 L AST 80 H ALT 73 H Total Protein 6.3 L Albumin 3.4 L Current Medications: Current meds reviewed in EMR. Active Medications Acetaminophen (Tylenol) 650 mg PO Q6H PRN PRN Reason: Pain or Temperature > 100.5 F Last Admin: 07/14/16 06:58 Dose: 650 mg Albuterol Sulfate (Ventolin Inhalation Solution (Dose)) 2.5 mg NEB Q4H PRN PRN Reason: Wheezing Last Admin: 07/14/16 06:21 Dose: 2.5 mg Albuterol/Ipratropium (Duoneb) 3 ml NEB 08,12,16,20 [facility] Last Admin: 07/13/16 20:02 Dose: 3 ml Alendronate Sodium (Fosamax) 70 mg PO MELISSA [facility] Last Admin: 07/09/16 08:03 Dose: 70 mg Amlodipine Besylate (Norvasc) 5 mg PO QAM [facility] Last Admin: 07/13/16 09:43 Dose: 5 mg Aspirin (Ecotrin) 81 mg PO DAILY [facility] Last Admin: 07/13/16 09:43 Dose: 81 mg Benzocaine/Menthol (Cepacol) 1 each PO PRN PRN PRN Reason: Sore Throat Last Admin: 07/10/16 21:18 Dose: 1 each Bisacodyl (Dulcolax) 10 mg [place] DAILY PRN PRN Reason: Constipation Bisacodyl (Dulcolax) 5 mg PO DAILY PRN PRN Reason: Constipation Cholecalciferol (Vitamin D3) 2,000 units PO QAM [facility] Last Admin: 07/13/16 09:43 Dose: 2,000 units Docusate Sodium (Colace) 100 mg PO BID [facility] Last Admin: 07/13/16 21:05 Dose: Not Given Enoxaparin Sodium (Lovenox) 90 mg SUB-Q Q12HR [facility] Last Admin: 07/13/16 21:06 Dose: Not Given Guaifenesin/Codeine Phosphate (Robitussin With Codeine) 5 ml PO Q4H PRN PRN Reason: Cough Last Admin: 07/14/16 06:59 Dose: 5 ml Hydrocortisone (Cortaid) 1 applic TP BID [facility] Last Admin: 07/13/16 21:05 Dose: Not Given Sodium Chloride (Sodium Chloride 0.9%) 100 mls @ 25 mls/hr IV PRN PRN PRN Reason: Flush Magnesium Hydroxide (Milk Of Magnesia) 30 ml PO DAILY PRN PRN Reason: Constipation Miscellaneous (Coumadin Per Pharmacy) 1 each PO PERPHARMACY [facility] Ondansetron HCl (Zofran) 4 mg IV Q4H PRN PRN Reason: Nausea/Vomiting Last Admin: 07/14/16 06:58 Dose: 4 mg Petrolatum/Paraffin/Mineral Oil (Blistex) 1 each TP PRN PRN PRN Reason: Dry and/or chapped lips Simvastatin (Zocor) 20 mg PO QPM [facility] Last Admin: 07/12/16 20:03 Dose: 20 mg Sodium Chloride (Normal Saline 10ml Flush) 10 - 50 ml IV PRN PRN PRN Reason: IV Flush Last Admin: 07/13/16 07:42 Dose: 10 ml Sodium Chloride (Normal Saline 10ml Flush) 10 ml IV Q8HR [facility] Last Admin: 07/14/16 00:04 Dose: Not Given - Problems: Assessment/Plan (1) Pulmonary embolism Qualifiers: Pulmonary embolism type: other Chronicity: acute Acute cor pulmonale presence: without acute cor pulmonale Qualifier Code: (I26.99) Other pulmonary embolism without acute cor pulmonale Status: AcuteAssessment /Plan: Extensive pulmonary emboli with acute hypoxic respiratory failure improving with anticoagulation, but now with cough, upper airway wheeze Echo done; but prelim suggests no cor pulmonale. Waiting on final echo report (2) CKD (chronic kidney disease) stage 3, GFR 30-59 ml/min Status: ChronicAssessment/Plan: Cr stable/improved. Pt reports solitary kidney, would like to avoid extra contrast if possible. (3) HTN (hypertension), benign Status: ChronicAssessment/Plan: stable on norvasc (4) Obesity, Class II, BMI 35-39.9 Status: ChronicAssessment/Plan: complicates care (5) Cough Status: AcuteAssessment/Plan: Cough has worsened, and now is bothering her quite a bit. 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 VTE Prophylaxis: Lovenox, coumadin Disposition: Anticipate discharge in am if stable
[2016-07-14] MEDS: ALBUTEROL/IPRATROPIUM 2.5/0.5 MG 3 ML/EACH DOSE NEB SCH ×4 (08:46→20:18)
[2016-07-14] MEDS: ASPIRIN (ENTERIC COATED) 81 MG TABLET.EC PO SCH (09:01)
[2016-07-14] MEDS: VITAMIN D3 1,000 UNITS CAP.LIQ PO SCH (09:01)
[2016-07-14] MEDS: HYDROCORTISONE 1% CREAM 20 APPLIC/30 G TUBE TP SCH ×2 (09:01→21:33)
[2016-07-14] MEDS: DOCUSATE SODIUM 100 MG CAPSULE PO SCH ×2 (09:01→21:34)
[2016-07-14] MEDS: ENOXAPARIN SODIUM 100 MG/ML SYRINGE SUB-Q SCH ×2 (09:01→21:33)
[2016-07-14] MEDS ORDERED: IOPAMIDOL 300 (61%) 100 ML VIAL IV ONE (09:46)
[2016-07-14] MEDS: PANTOPRAZOLE SODIUM 20 MG TABLET.DR PO SCH (10:05)
[2016-07-14] MEDS ORDERED: BENZONATATE 100 MG CAPSULE PO PRN (12:53)
[2016-07-14] MEDS ORDERED: LORAZEPAM 0.5 MG TABLET PO PRN (12:54)
--- NOTE | 2016-07-14 13:32 | CT ---
SINUSES Comparison: None. Clinical information: Cough and wheezing from upper airway. Technique: The sinuses were imaged with a [employer] Aquilion [address] scanner. An automated dose reduction technique was used to minimize patient radiation dose. Dose information: CTDIvol (mGy) 21.60 DLP(mGycm) 320.00 Findings Right sinuses and drainage pathways Frontal sinus and frontal recess: Mucosal thickening obstructs the frontal recess and extends into the medial base of the sinus. Maxillary sinus: Minimal 1 to 2 mm thick mucosa, medial and inferior. Ethmoid sinuses: Minimal 1 to 2 mm thick mucosa. Opacification of posterior cell. Ostiomeatal complex: Normal. Sphenoid sinus: Normal. Sphenoethmoidal recess: Normal. Left sinuses and drainage pathways Frontal sinus and frontal recess: Normal. Maxillary sinus: 2 mm thick mucosa, superior, medial, and inferior. Ethmoid sinuses: Normal. Ostiomeatal complex: Normal. Sphenoid sinus: Normal. Sphenoethmoidal recess: Normal. Other findings Post-surgical changes: None. Anatomic variations: None. Nasal cavity: Normal. Orbits: Normal. Anterior cranial fossa: Normal. Other findings: None. IMPRESSION: 1. No acute sinusitis. 2. Mild chronic sinusitis, right frontal, maxillary, and ethmoid sinuses. Left maxillary sinus.
--- NOTE | 2016-07-14 13:40 | CT ---
NECK SOFT TISSUE W/ CON COMPARISON: None. HISTORY: Cough with upper airway wheezing. TECHNIQUE: Intravenous injection 60 mL Isovue 300. Using a [employer] Aquilion [address] scanner, images obtained from the superior mediastinum to the skull base. An automated dose reduction technique was used to minimize patient radiation dose. Dose information: CTDIvol (mGy): 6.50, 5.00, 5.00 DLP(mGycm): 343.80 FINDINGS: Lymph nodes: No lymphadenopathy. Superior mediastinum: Normal. Vessels: Normal. Nasopharynx: Normal. Oropharynx: Normal. Hypopharynx: Normal. Larynx: Normal. Epiglottis: Normal. Esophagus: Normal. Trachea: Normal. Tongue: Normal. Tonsils: Normal. Salivary glands: Normal. Thyroid gland: Normal. Retropharyngeal space: Normal. Parapharyngeal space: Normal. Paranasal sinuses: See separate report, CT sinuses 07/14/2016. Nasal passages: Normal. Facial bones: Normal. Orbits: Normal. Cervical spine: Mild degenerative changes. Lung apices: Normal. Paraspinal muscles: Normal. IMPRESSION: 1. Normal study. The results discussed with Michael Rosario M.D. 07/14/2016 at 13:36
[2016-07-14] MEDS ORDERED: WARFARIN SODIUM 1 MG TABLET PO ONE (16:00)
[2016-07-15] MEDS: GUAIFENESIN/CODEINE 100/10 MG (5 ML UDCUP) PO PRN ×2 (00:31→07:52)
[2016-07-15 06:27] LABS: INR 2.99; PROTHROMBIN TIME 33.3 SECONDS (9.3-11.4)
[2016-07-15 07:22] VITALS: BP 131/77
[2016-07-15] MEDS: HYDROCORTISONE 1% CREAM 20 APPLIC/30 G TUBE TP SCH ×2 (07:42→09:35)
[2016-07-15] MEDS: ALBUTEROL/IPRATROPIUM 2.5/0.5 MG 3 ML/EACH DOSE NEB SCH ×3 (09:09→12:55)
[2016-07-15] MEDS: ASPIRIN (ENTERIC COATED) 81 MG TABLET.EC PO SCH (09:34)
[2016-07-15] MEDS: VITAMIN D3 1,000 UNITS CAP.LIQ PO SCH (09:34)
[2016-07-15] MEDS: PANTOPRAZOLE SODIUM 20 MG TABLET.DR PO SCH (09:34)
[2016-07-15] MEDS: DOCUSATE SODIUM 100 MG CAPSULE PO SCH (09:35)
[2016-07-15] MEDS: ENOXAPARIN SODIUM 100 MG/ML SYRINGE SUB-Q SCH (09:35)
--- NOTE | 2016-07-15 10:42 | PDOC5 ---
ADMIT DATE: 07/08/16 DISCHARGE DATE: 07/15/16 ADMISSION DIAGNOSES: PE Syncope Discharge Diagnoses: PE Syncope CKD 3 OA Essential HTN HLD Osteoporosis PROCEDURES PERFORMED THIS HOSPITALIZATION: None CONSULTATIONS: None HOSPITAL COURSE: This is a 76 year old female who had a syncopal episode, presented to the emergency department and was found to have B/L PE's. She was admitted to the hospital and placed on a heparin drip with initiation of coumadin therapy. With the PE's, she had acute hypoxic respiratory failure requiring supplemental oxygen therapy. She was transitioned to lovenox on hospital day 2. Her respiratory status slowly improved. Her INR became therapeutic on 07/12. Lovenox was continued with a bridge for 5 days; she is being discharge home with day 4 and 5 of lovenox injections. She is very comfortable with the injections as she has been administering the medication on her own. Echocardiogram was obtained did not show evidence of cor pulmonale. Her hospital stay was complicated by the development of diffuse wheezing on hospital day 4. She had relief with duoneb neublizer treatments. Due to the development of wheezing, repeat CXR and chest CT did not reveal additional cause of her symptoms; the imaging studies indicated bronchitis or viral infection with improvement in the appearance of the PE. She required supplemental oxygen on-off over the next several days. Along with the wheezing, her cough worsened and she developed nasal congestion. With these symptoms her oxygen requirements decreased to where she tolerated room air with activity. Due to the congestion and sore throat, further imaging , CT sinuses and neck soft tissue x-ray, was obtained which did not illustrate a new acute process. She is being treated for a viral upper respiratory tract infection along with her PE's. She is comfortable being discharged home and has follow-up scheduled in 3 days. She is comfortable continuing the lovenox therapy at home and will work with [facility] for coumadin management. - Exam Vital Signs Temperature 98.5 F 07/15/16 07:21 Pulse Rate 78 07/15/16 07:23 Respiratory Rate 24 07/15/16 07:21 Blood Pressure 131/77 07/15/16 07:21 O2 Saturation by Pulse Oximetry 92 07/15/16 07:23 Oxygen Delivery Method Room Air Oxygen Flow Rate 0 General: Alert, Oriented x3, Cooperative, No Acute Distress HEENT: Atraumatic, PERRLA, EOMI, Mucous membr. moist/pink Lungs: Other (wheeze R lobes, decresaed bases B/L and left lobes) Cardiovascular: Regular Rate and Rhythm, Normal S1, Normal S2 Abdomen: Soft, Non-Distended, No Rigid, No Tenderness, No Rebounding Extremities: No Cyanosis, No Edema, No Tenderness Peripheral Pulses: Radial (L): 1+, Radial (R): 1+ Neurological: Normal Speech Psych/Mental Status: Normal Mood - Results Laboratory 07/14/16 05:30 07/14/16 05:30 07/15/16 05:30 PT 33.3 H Laboratory Tests 07/09/16 07/10/16 07/12/16 05:30 03:45 06:30 PT 10.9 12.5 H 36.1 H INR 1.04 1.18 3.23 07/13/16 07/14/16 05:30 05:30 PT 36.3 H 30.0 H INR 3.25 2.71 Imaging Results: CXR 07/08/2016: no acute finding. Mild cardiomegaly and atherosclerosis of thoracic aorta CXR 07/11/2016: Borderline cardiac size with mild central vascular prominence similar to prior exam. CXR 07/13/2016: No gross airspace consolidation. Coarsened bronchovascular markings which can be seen in bronchitis, atypical/viral infection or central airway disease. CTA PE: 07/08/2016: B/L PE with mosiac perfusion. CT Chest 07/13/2016: Resolution of mosiac attentuation seen from prior studies. Lungs are clear. No specific cause for persistent cough and wheezing. CT Head: No acute finding. Mild cerebral atrophy similar to prior exam. CT Neck Soft Tissues 07/14/2016: Normal study. CR Sinuses: No acute sinusitis. Mild chronic sinusitis, right frontal, maxillary and ethmoid sinuses. Left maxillary sinus. Echocardiogram 07/13/2016: Normal diastolic dysfunction. Mild aortic valve sclerosis, no evidence of regurgitation. No pericardial effusion. EF not reported - Problems:Assessment/Plan (1) Pulmonary embolism Qualifiers: Pulmonary embolism type: other Chronicity: acute Acute cor pulmonale presence: without acute cor pulmonale Qualifier Code: (I26.99) Other pulmonary embolism without acute cor pulmonale Status: AcuteAssessment /Plan: Extensive pulmonary emboli with acute hypoxic respiratory failure improving with anticoagulation, but now with cough, upper airway wheeze Echo done; but prelim suggests no cor pulmonale. No evidence of cor pulmonale on echocardiogram Tolerating room air and maintaining O2 sats above 90%. Therapeutic on coumadin since 07/12/2016. 2 days left of lovenox bridge. (2) CKD (chronic kidney disease) stage 3, GFR 30-59 ml/min Status: ChronicAssessment/Plan: Cr stable/improved. Pt reports solitary kidney, would like to avoid extra contrast if possible. (3) HTN (hypertension), benign Status: ChronicAssessment/Plan: stable on norvasc (4) Obesity, Class II, BMI 35-39.9 Status: ChronicAssessment/Plan: complicates care (5) Viral URI with cough Status: AcuteAssessment/Plan: complicating PE recovery with congestion and cough. supportive care - Disposition: Disposition: Anticipate discharge in am if stable - Discharge Plan Instruction Forms: Warfarin Therapy Education Additional Instructions: For your cold, plenty of fluids. Honey will help with cough. Tylenol for fever and pain relief Prescriptions: Enoxaparin Sodium [LOVENOX 100 MG SYR (SHF)] 90 mg SUB-Q Q12HR #4 syringe Warfarin Sodium [COUMADIN 1 MG TABLET (SHF)] 3 mg PO X1 #90 tablet Benzonatate [TESSALON PERLES 100 MG (SHF)] 200 mg PO TID PRN #30 capsule PRN Reason: Cough Albuterol Sulfate Mdi [VENTOLIN HFA MDI (SHF)] 1 - 2 puffs IH Q4-6H PRN #1 inhaler PRN Reason: Wheezing Follow-Up: [facility] [Outside] ([facility] WILL CONTACT YOU TO SCHEDULE YOUR NEXT APPOINTMENT. THE PHYSICIAN IS RECOMMENDING YOU BE SEEN BY SundayAUGUST 15.) Lissy Bardales, NURSING CLERK, DNP [Primary Care Provider] - 07/18/16 1:30 pm Condition: Stable Disposition: Home
== END 2016-07-15 13:39 | disposition home or self-care (01) | DRG 175 ==
LOC: ED 09:48 → ICU 14:10 → MS 07-09 15:08
PROVIDERS: ADMIT Family Medicine; ATTEND Family Medicine
DX: I26.99 Other pulmonary embolism without acute cor pulmonale (principal); J96.01 Acute respiratory failure with hypoxia; E87.1 Hypo-osmolality and hyponatremia; I51.7 Cardiomegaly; I70.0 Atherosclerosis of aorta; M51.34 Other intervertebral disc degeneration, thoracic region; J32.9 Chronic sinusitis, unspecified; M19.90 Unspecified osteoarthritis, unspecified site; E78.5 Hyperlipidemia, unspecified; I12.9 Hypertensive chronic kidney disease with stage 1 through stage 4 chronic kidney disease, or unspecified chronic kidney disease; N18.3 Chronic kidney disease, stage 3 (moderate); T68.XXXA Hypothermia, initial encounter; E66.9 Obesity, unspecified; Z68.35 Body mass index [BMI] 35.0-35.9, adult; G31.9 Degenerative disease of nervous system, unspecified; J06.9 Acute upper respiratory infection, unspecified

== ENCOUNTER 2016-07-17 13:02 | Emergency (ER) | payer MEDICARE ==
[2016-07-17] MEDS ORDERED: IOPAMIDOL 370 (76%) 100 ML VIAL IV ONE (13:03)
[2016-07-17] MEDS ORDERED: ALBUTEROL/IPRATROPIUM 2.5/0.5 MG 3 ML/EACH DOSE ONE ×2 (14:04→16:02)
[2016-07-17 14:16] LABS: ABSOLUTE NEUTROPHIL COUNT 7.4 K/mm3 (1.8-7.7); BASO # 0.1 K/mm3 (0.0-0.2); BASO % 0.4 % (0.2-1.0); EOS # 0.2 (0.0-0.5); EOS % 1.9 % (0.9-2.9); HEMOGLOBIN 11.7 gm/l (12.0-16.0); IMM NEUT # 0.1 K/mm3 (0-0.2); IMM NEUT% 0.7 % (0-1); LYMPH # 3.2 (1.0-4.8); LYMPH % 26.7 % (15-45); MEAN CELL VOLUME 96.4 fl (81.0-99.0); MEAN CORPUSCULAR HEMOGLOBIN 30.5 pg (27.0-31.0); MEAN CORPUSCULAR HGB CONC 31.6 g/dl (33.0-37.0); MEAN PLATELET VOLUME 9.7 fl (7.4-10.4); MONO # 1.1 (0.0-0.8); MONO % 8.8 % (4-12); NEUT % 61.5 % (43-75); PLATELET COUNT 298 K/mm3 (130-400); RED CELL DISTRIBUTION WIDTH 13.2 % (11.5-14.5)
[2016-07-17 14:29] LABS: INR 3.78; PARTIAL THROMBOPLASTIN TIME 63.8 SECONDS (24.5-33.0); PROTHROMBIN TIME 42.5 SECONDS (9.3-11.4)
[2016-07-17 14:35] LABS: ALB/GLOB RATIO 1.1 (>1.0); ALBUMIN 3.9 gm/dL (3.5-5.7); CALCIUM 9.3 mg/dL (8.6-10.3)
--- NOTE | 2016-07-17 14:56 | US ---
RIGHT LOWER EXTREMITY VENOUS ULTRASOUND HISTORY: Right leg pain, history of prior pulmonary embolus. Sonography of the right lower extremity was performed, with a focus on the venous structures. FINDINGS: COMMON FEMORAL VEIN: Patent and compressible. SUPERFICIAL FEMORAL VEIN: Patent and compressible. POPLITEAL VEIN: Patent and compressible. PROXIMAL CALF VEINS: Patent and compressible. RESPIRATORY AUGMENTATION OF FLOW: Present. ABNORMAL FLUID COLLECTIONS: None identified. IMPRESSION: No sonographic evidence of right lower extremity deep venous thrombosis. Results were electronically transmitted to the electronic medical record at 07/17/2016 at 1452 hours.
[2016-07-17] MEDS ORDERED: DEXAMETHASONE SOD PHOS 10 MG/1 ML VIAL ONE (15:01)
[2016-07-17] MEDS ORDERED: PANTOPRAZOLE SODIUM 40 MG VIAL IV ONE ×2 (15:01→15:03)
--- NOTE | 2016-07-17 15:16 | RAD ---
CHEST 2 VIEWS HISTORY: Cough. Frontal and lateral chest radiographs dated 07/17/2016. COMPARISON: 07/13/2016 FINDINGS: LUNG VOLUMES: Hyperinflation. FOCAL AIRSPACE OPACITY: Minor increase in right infrahilar/right basilar density. PLEURAL EFFUSION: None. CARDIOMEDIASTINAL SILHOUETTE: Nonenlarged. Aortic arch calcification. PNEUMOTHORAX: None identified. OSSEOUS STRUCTURES: Findings of thoracic kyphosis and disc degeneration. IMPRESSION: 1. Interval increase in density at the right lung base, raising suspicion for early pneumonia. Recommend follow-up imaging to ensure resolution. 2. Hyperinflation compatible with obstructive pulmonary disease. 3. Findings of aortic atherosclerotic disease and thoracic disc degeneration.
[2016-07-17 15:52] LABS: PH,URINE 6.5 (5.0-8.0); SPECIFIC GRAVITY 1.015 (1.001-1.030); URINE BILIRUBIN NEGATIVE (NEGATIVE); URINE BLOOD NEGATIVE (NEGATIVE); URINE GLUCOSE (UA) NEGATIVE (NEGATIVE); URINE LEUKOCYTE ESTERASE 1+ (NEGATIVE); URINE NITRITE NEGATIVE (NEGATIVE); URINE PROTEIN NEGATIVE (NEGATIVE); URINE UROBILINOGEN NORMAL (0-1 mg/dl)
[2016-07-17 15:55] LABS: URINE APPEARANCE CLEAR; URINE COLOR YELLOW
[2016-07-17 16:01] LABS: URINE BACTERIA 1+; URINE EPITHELIAL CELLS 20-25 /hpf
[2016-07-17] MEDS ORDERED: PIPERACILLIN-TAZO PREMIX BAG 50 ML IV ONE (16:20)
[2016-07-17] MEDS ORDERED: VANCOMYCIN HCL 1 G/20 ML VIAL ONE (16:21)
[2016-07-17] MEDS ORDERED: SODIUM CHLORIDE 0.9% 250 ML IV ONE (16:22)
[2016-07-17] MEDS ORDERED: ALBUTEROL SULFATE 5MG/ML INHALANT 20 ML BOT ONE (17:21)
[2016-07-17] MEDS ORDERED: IPRATROPIUM BROMIDE 0.5 MG/2.5 ML DOSE ONE (17:21)
--- NOTE | 2016-07-17 17:39 | CT ---
Exam: CT chest with contrast COMPARISON: 07/13/2016, 07/08/2016 and chest radiograph 07/17/2016 INDICATION: Increased wheezing, history of PE. Concern for infarction. TECHNIQUE: CT examination of the chest was obtained following the administration of 80 mL Isovue-370 intravenous contrast. FINDINGS: There is mild diffuse bronchial wall thickening, with a few patchy areas of mucus plugging, most prominent within the right lower lobe. There is a tiny focus of subpleural groundglass opacity/atelectasis within the left lung apex. Lung pinedo are otherwise symmetric and clear. Although this examination was not obtained as a pulmonary artery protocol, the embolic disease seen on the 07/08/2016 exam is not appreciated. There is no significant mediastinal or hilar lymphadenopathy by size criteria. There is no pleural or pericardial effusion. Tiny hiatal hernia is noted. Limited evaluation of the upper abdomen demonstrates hepatic steatosis, fatty infiltration of the pancreas and chronic atrophic left kidney related to hydronephrosis but is without acute concerning abnormality. No worrisome lytic or blastic osseous lesion is identified. A few bridging osteophytes are noted within the thoracic spine. IMPRESSION: No evidence of pulmonary infarction. There is mild diffuse bronchial wall thickening and patchy areas of mucus plugging and a tiny focus of groundglass opacity/atelectasis within left upper lobe. No evidence of pneumonia is seen within the right lower lobe as suggested on earlier plain radiograph. Report was uploaded to the EMR at 1734 hours 07/17/2016.
== END 2016-07-17 20:44 | disposition short-term general hospital (02) ==
LOC: ED 13:02
DX: J44.1 Chronic obstructive pulmonary disease with (acute) exacerbation (principal); S70.11XA Contusion of right thigh, initial encounter; I12.9 Hypertensive chronic kidney disease with stage 1 through stage 4 chronic kidney disease, or unspecified chronic kidney disease; N18.4 Chronic kidney disease, stage 4 (severe); N25.81 Secondary hyperparathyroidism of renal origin; Z86.711 Personal history of pulmonary embolism; Z79.01 Long term (current) use of anticoagulants; X58.XXXA Exposure to other specified factors, initial encounter; Y92.9 Unspecified place or not applicable

== ENCOUNTER 2016-09-13 01:33 | Emergency (ER) | payer MEDICARE ==
[2016-09-13] MEDS ORDERED: IOPAMIDOL 370 (76%) 100 ML VIAL IV ONE (01:34)
[2016-09-13 02:23] LABS: ABSOLUTE NEUTROPHIL COUNT 9.8 K/mm3 (1.8-7.7); BASO # 0.1 K/mm3 (0.0-0.2); BASO % 0.6 % (0.2-1.0); EOS # 0.3 (0.0-0.5); EOS % 2.8 % (0.9-2.9); HEMATOCRIT 40.1 % (37.0-47.0); HEMOGLOBIN 12.9 gm/l (12.0-16.0); IMM NEUT # 0.1 K/mm3 (0-0.2); IMM NEUT% 0.4 % (0-1); LYMPH # 1.1 (1.0-4.8); LYMPH % 8.9 % (15-45); MEAN CELL VOLUME 101.3 fl (81.0-99.0); MEAN CORPUSCULAR HEMOGLOBIN 32.6 pg (27.0-31.0); MEAN CORPUSCULAR HGB CONC 32.2 g/dl (33.0-37.0); MONO # 0.6 (0.0-0.8); MONO % 5.3 % (4-12); PLATELET COUNT 260 K/mm3 (130-400); RED CELL DISTRIBUTION WIDTH 13.9 % (11.5-14.5)
[2016-09-13 02:39] LABS: ALB/GLOB RATIO 1.3 (>1.0); ALBUMIN 3.7 gm/dL (3.5-5.7); CALCIUM 8.9 mg/dL (8.6-10.3)
[2016-09-13 02:42] LABS: D-DIMER 1.06 mg/L FEU (0.20-0.50); INR 3.17; PROTHROMBIN TIME 35.4 SECONDS (9.3-11.4)
[2016-09-13 02:54] LABS: URINE BILIRUBIN NEGATIVE (NEGATIVE); URINE BLOOD NEGATIVE (NEGATIVE); URINE GLUCOSE (UA) NEGATIVE (NEGATIVE); URINE LEUKOCYTE ESTERASE NEGATIVE (NEGATIVE); URINE NITRITE NEGATIVE (NEGATIVE); URINE PROTEIN NEGATIVE (NEGATIVE); URINE UROBILINOGEN NORMAL (0-1 mg/dl)
[2016-09-13 02:55] LABS: URINE APPEARANCE CLEAR; URINE COLOR YELLOW
[2016-09-13] MEDS ORDERED: ACETAMINOPHEN 500 MG TABLET ONE (05:03)
--- NOTE | 2016-09-13 08:26 | CT ---
CHEST CTA HISTORY: Shortness breath with elevated d-dimer. TECHNIQUE: Following the administration of 80 mL Isovue-370 intravenous contrast, contiguous axial images were acquired from the thoracic inlet to the diaphragmatic hiatus for CT pulmonary angiography. Comparison against 07/08/2016 study. Three-dimensional imaging was not performed. FINDINGS: PULMONARY ARTERIAL TREE: Technically adequate enhancement: No dominant filling defects. THORACIC AORTA: Minor atherosclerotic calcifications. No aneurysmal dilatation or dissection flap.. LUNGS: Minor atelectatic change of the lung bases without gross airspace consolidation. BREE AND MEDIASTINUM: Redemonstration of a right hilar lymph node, 1.5 x 1.1 cm, grossly unchanged. AXILLAE: No grossly enlarged lymph nodes. UPPER ABDOMEN: Small hiatal hernia. 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 OSSEOUS STRUCTURES: Thoracic kyphosis with findings of disc degeneration. No grossly destructive lesions. IMPRESSION: 1. No CTA evidence of proximal order pulmonary embolus, with resolution of previously noted emboli. 2. No gross airspace disease or acute thoracic aortic pathology. 3. Redemonstration of prominent atrophy of the left kidney, correlate for long-standing obstruction. 4. Small hiatal hernia. Preliminary report relayed to the Emergency Medicine medical service by Dr. Acosta on 09/13/2016 at 0437 hours..
== END 2016-09-13 05:17 | disposition home or self-care (01) ==
LOC: ED 01:33
DX: R07.89 Other chest pain (principal); E78.5 Hyperlipidemia, unspecified; I10 Essential (primary) hypertension; Z86.711 Personal history of pulmonary embolism; Z79.01 Long term (current) use of anticoagulants
CPT/HCPCS: 85379; 85025; 80053; 85610; 81003; 84484; 71275; 99284 ×2; 51701; 93005; A9270; Q9967